=== PATIENT | female | born 1980 | race Caucasian/White ===

== ENCOUNTER 2022-10-15 19:09 | Emergency (ER) | payer MEDICARE, MEDICAID ==
[~2022-10-15] VITALS: Wt 86.2 kg
[~2022-10-15 19:09] MED LIST: ALBUTEROL0.09 MG/A2 INH; AMOXICILLIN500 M2 PO; ATIVAN1 MG PO; BACTRIM DS 8001 TA1 PO; CLARITIN10 MG PO; COMBIVENT1 ARO IH; COMPAZINE10 MG PO; CYCLOBENZAPRINE10 MG PO; DOXYCYCLINE HY100 M3 PO; DUONEB 3 MG/3 ML3 M1 INH; Fioricet 325 MG1 TAB PO; HYDROCODONE BIT1 T11 PO; IBU800 MG PO; LEVAQUIN750 M1 PO; MEDROL DOSEPAK4 MG PO; NKHM; NORCO 5-325 TA1 EACH PO; PREDNICOT20 MG PO; ROBITUSSIN DM 105 ML PO; ZITHROMAX Z PA250 MG PO; ZOFRAN4 MG PO; ZYRTEC10 MG PO
[2022-10-15 19:37] LABS: BASO # 0.1 10*3/uL (0.0-0.1); BASO % 0.8 % (0.0-1.0); EOS # 0.2 10*3/uL (0.0-0.4); EOS % 2.1 % (1.0-4.0); HEMATOCRIT 39.1 % (37.0-47.0); LYMPH # 3.4 10*3/uL (1.3-4.4); LYMPH % 29.9 % (27.0-41.0); MEAN CELL VOLUME 89.5 fl (81.0-99.0); MEAN CORPUSCULAR HGB 30.7 pg (27.0-31.0); MEAN CORPUSCULAR HGB CONC 34.3 g/dl (33.0-37.0); MEAN PLATELET VOLUME 9.6 fl (9.6-12.3); MONO # 0.8 10*3/uL (0.1-1.0); MONO % 7.1 % (3.0-9.0); NEUT # 6.7 10*3/uL (2.3-7.9); NEUT % 59.8 % (47.0-73.0); PLATELET COUNT AUTOMATED 312 10*3/uL (130-400); RED BLOOD COUNT 4.37 10*6/uL (4.10-5.10); RED CELL DISTRI WIDTH 12.8 % (0-14.5); WHITE BLOOD COUNT 11.2 10*3/uL (4.8-10.8)
[2022-10-15 19:58] LABS: ALKALINE PHOSPHATASE 53 U/L (46-116); BUN 15 mg/dl (9-23); CHLORIDE 108 mmol/L (98-107); LIPASE 35 U/L (12-53); POTASSIUM 3.7 mmol/L (3.4-5.1); SGPT/ALT 16 U/L (10-49); TOTAL PROTEIN 6.8 gm/dL (6.0-8.0)
[2022-10-15 20:54] VITALS: BP 149/93
== END 2022-10-15 23:05 | disposition short-term general hospital (02) ==
LOC: ED 19:09
PROVIDERS: Internal Medicine
DX: N13.2 Hydronephrosis with renal and ureteral calculous obstruction (principal); G43.909 Migraine, unspecified, not intractable, without status migrainosus; F32.A Depression, unspecified; Z98.890 Other specified postprocedural states